=== PATIENT | male | born 1995 | race Caucasian/White ===

== ENCOUNTER 2016-09-17 13:00 | Emergency (ER) | payer SELFPAY | END 2016-09-17 13:30 | disposition left against medical advice (07) | LOC: SED 13:00 | DX: Z53.21 Procedure and treatment not carried out due to patient leaving prior to being seen by health care provider (principal) ==

== ENCOUNTER 2016-09-17 17:06 | Emergency (ER) | payer SELFPAY ==
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
== END 2016-09-17 18:21 | disposition home or self-care (01) ==
LOC: SED 17:06
DX: S60.221A Contusion of right hand, initial encounter (principal); F17.210 Nicotine dependence, cigarettes, uncomplicated; X58.XXXA Exposure to other specified factors, initial encounter; Y92.89 Other specified places as the place of occurrence of the external cause
CPT/HCPCS: 29280; 73130; 99283